=== PATIENT | male | born 1950 | race Caucasian/White ===

== ENCOUNTER 2022-09-27 10:49 | Emergency (ER) | payer OTHER ==
[~2022-09-27] VITALS: Ht 167.6 cm; Wt 87.1 kg
[2022-09-27 11:07] VITALS: BP 160/90; PULSE 78; RESP 18; TEMP 97.8; O2SAT 98
--- NOTE | 2022-09-27 11:15 | NUR ---
PT AMBULATED TO BED 12 WITH SPOUSE
--- NOTE | 2022-09-27 11:36 | NUR ---
MD MCCLOUD BEDSIDE ASSESSING PT
[2022-09-27] MEDS ORDERED: MECLIZINE 25 MG TAB PO ONE (11:45)
--- NOTE | 2022-09-27 11:45 | NUR ---
PT WHEELED TO CT IN WHEELCHAIR
--- NOTE | 2022-09-27 11:55 | NUR ---
PT WHEELED TO BED [address]
[2022-09-27 12:11] LABS: BASOPHILS # (AUTO) 0.1 K/uL (0.00-0.22); BASOPHILS % (AUTO) 0.5 % (0.0-2.0); EOSINOPHILS % (AUTO) 0.3 % (0.0-4.0); HEMATOCRIT 46.5 % (36-52); HEMOGLOBIN 15.2 g/dL (12.0-18.0); LYMPHOCYTES # (AUTO) 2.4 K/uL (2.0-11.5); LYMPHOCYTES % (AUTO) 19.9 % (20.5-51.1); MEAN CORPUSCULAR HEMOGLOBIN 29 pg (27-31); MEAN CORPUSCULAR HGB CONC 33 g/dL (33-37); MEAN CORPUSCULAR VOLUME 88.5 fL (80-94); MONOCYTES # (AUTO) 0.7 K/uL (0.8-1.0); MONOCYTES % (AUTO) 5.6 % (1.7-9.3); NEUTROPHILS % (AUTO) 73.7 % (42.2-75.2); PLATELET COUNT (AUTO) 235 K/uL (140-450); RED BLOOD CELL COUNT(AUTO) 5.26 MIL/uL (4.20-6.10); RED CELL DISTRIBUTION WIDTH 15.1 % (11.6-13.7); WHITE BLOOD COUNT (AUTO) 12.2 K/uL (4.8-10.8)
[2022-09-27 12:33] LABS: ANION GAP 13.6 (8-16); CARBON DIOXIDE 24.9 mmol/L (21-32); CREATININE 0.8 mg/dL (0.6-1.3); POTASSIUM 4.5 mmol/L (3.5-5.1); TOTAL BILIRUBIN 0.6 mg/dL (0.0-1.0)
[2022-09-27] MEDS ORDERED: HYDR-4004 PO ×2 (12:48→12:56)
[2022-09-27] MEDS ORDERED: MECL-303 PO ×2 (12:48→12:56)
[2022-09-27 12:56] VITALS: BP 146/80; PULSE 74; RESP 17; O2SAT 98
--- NOTE | 2022-09-27 12:57 | NUR ---
Patient discharged with v/s stable. Written and verbal after care instructions given and explained. Patient alert, oriented and verbalized understanding of instructions. Ambulatory with steady gait. All questions addressed prior to discharge. ID band removed. Patient advised to follow up with PMD. Rx of ANTIVERT, HYDOCHLOROTHIAZIDE given. Patient educated on indication of medication including possible reaction and side effects. Opportunity to ask questions provided and answered.
== END 2022-09-27 12:57 | disposition home or self-care (01) ==
LOC: MED 10:49
DX: H81.10 Benign paroxysmal vertigo, unspecified ear (principal); I10 Essential (primary) hypertension; Z79.899 Other long term (current) drug therapy
CPT/HCPCS: 36415; 70450; 80053; 85025; 99284; J8597